=== PATIENT | male | born 1975 | race Hispanic/Latino ===

== ENCOUNTER 2023-08-27 02:56 | Observation (INO) | payer OTHER ==
[2023-08-27] VITALS (7 sets, daily range): BP systolic 101–128; BP diastolic 67–79; PULSE 76–83; RESP 14–22; O2SAT 96–98
[~2023-08-27] VITALS: Ht 182.9 cm; Wt 133.4 kg
[2023-08-27] MEDS ORDERED: ROSU40 PO (04:46)
[2023-08-27] MEDS ORDERED: SITA1TAB6 PO (04:46)
[2023-08-27] MEDS ORDERED: MONT-47 PO (04:46)
[2023-08-27] MEDS ORDERED: EMPA25TA PO (04:46)
[2023-08-27] MEDS ORDERED: SEMA0.258 SQ (04:46)
[2023-08-27] MEDS ORDERED: LISI2.5T13 PO (04:46)
[2023-08-27] MEDS ORDERED: ONDANSETRON 4MG INJ IV PRN (06:00)
[2023-08-27] MEDS ORDERED: GLUCAGON 1MG KIT 1 MG ML IM PRN (06:00)
[2023-08-27] MEDS ORDERED: ACETAMINOPHEN 325 MG TAB PO PRN ×2 (06:00)
[2023-08-27] MEDS ORDERED: POTASSIUM CHLORIDE 10% ELIXIR 20 MEQ/15 ML UDCUP PO PRN (06:00)
[2023-08-27] MEDS ORDERED: KCL 20 MEQ ERTAB PO PRN (06:00)
[2023-08-27] MEDS ORDERED: POTASSIUM CHLORIDE 20MEQ/100ML 100 ML IV PRN (06:00)
[2023-08-27] MEDS ORDERED: DEXTROSE 50%-WATER 50 ML DISP.SYRIN IV PRN (06:00)
[2023-08-27 06:57] LABS: BASOPHILS # (AUTO) 0.01 K/uL (0.00-0.20); BASOPHILS % (AUTO) 0.5 % (0.0-5.0); EOSINOPHILS # (AUTO) 0.08 K/uL (0.00-0.70); EOSINOPHILS % (AUTO) 4.1 % (0.0-8.0); HEMATOCRIT 39.6 % (42-54); IMMATURE GRANULOCYTE ABSOLUTE 0.01 K/uL (0-1); LYMPHOCYTES # (AUTO) 0.7 K/uL (1.0-4.8); LYMPHOCYTES % (AUTO) 36.3 % (21.0-51.0); MEAN CORPUSCULAR HEMOGLOBIN 29.4 pg (27.0-33.0); MEAN CORPUSCULAR HGB CONC 34.1 g/dL (32.0-36.0); MEAN CORPUSCULAR VOLUME 86.3 fL (79-99); MONOCYTES # (AUTO) 0.5 K/uL (0.1-1.0); MONOCYTES % (AUTO) 23.3 % (3.0-13.0); NEUTROPHILS # (AUTO) 0.7 K/uL (1.8-7.7); NEUTROPHILS % (AUTO) 35.3 % (40.0-77.0); PLATELET COUNT (AUTO) 119 K/uL (130-400); RED BLOOD CELL COUNT(AUTO) 4.59 MIL/uL (4.50-6.20); RED CELL DISTRIBUTION WIDTH 12.8 % (11.0-15.5); WHITE BLOOD COUNT (AUTO) 1.9 K/uL (4.8-10.8)
[2023-08-27 07:15] LABS: ALBUMIN 3.5 g/dL (3.5-5.0); BILIRUBIN,DIRECT 0.1 mg/dL (0.0-0.3); BILIRUBIN,TOTAL 0.6 mg/dL (0.2-1.0); CREATININE 0.7 mg/dL (0.5-1.3); MAGNESIUM 1.6 mg/dL (1.80-2.40); POTASSIUM 3.6 mmol/L (3.5-5.1); TOTAL PROTEIN, SERUM 6.7 g/dL (6.0-8.3)
[2023-08-27] MEDS: INSULIN HUMULIN R 100 UNIT/ML 3ML SQ SCH (07:30)
[2023-08-27 08:01] LABS: ERYTHROCYTE SEDIMENTATION RATE 8 MM/HR (0-15)
[2023-08-27] MEDS: 0.9%NACL 1000ML 1,000 ML IV SCH (08:13)
[2023-08-27] MEDS: MAGNESIUM 2GM PREMIX 50ML 50 ML IV PRN (09:13)
[2023-08-27] MEDS: FAMOTIDINE 20MG TAB PO SCH (09:13)
[2023-08-27] MEDS: ASPIRIN 81 MG EC TAB PO SCH (09:13)
[2023-08-27 09:58] LABS: CHOLESTEROL 117 mg/dL (<200); HDL CHOLESTEROL 32 mg/dL (29-71); LDL DIRECT 71 mg/dL (0-99); TRIGLYCERIDES 107 mg/dL (30-200)
[2023-08-27 09:59] LABS: HEMOGLOBIN A1C 7.1 % (4.0-6.0)
[2023-08-27 10:13] LABS: SARS-CoV-2, RNA, NAAT NEGATIVE SARS CoV-2 (NEGATIVE)
[2023-08-27 10:26] LABS: INFLUENZA TYPE A Negative For Type A (NEGATIVE); INFLUENZA TYPE B Negative For Type B (NEGATIVE)
[2023-08-27] MEDS: ATORVASTATIN 20 MG TABLET PO SCH (19:51)
[2023-08-27] MEDS ORDERED: ATORVASTATIN 20 MG TABLET PO SCH (21:00)
[2023-08-28] VITALS (7 sets, daily range): BP systolic 108–120; BP diastolic 58–70; PULSE 71–79; RESP 14–19; O2SAT 96–98
[2023-08-28 05:18] LABS: BASOPHILS # (AUTO) 0.02 K/uL (0.00-0.20); BASOPHILS % (AUTO) 0.7 % (0.0-5.0); EOSINOPHILS # (AUTO) 0.14 K/uL (0.00-0.70); EOSINOPHILS % (AUTO) 5.1 % (0.0-8.0); HEMATOCRIT 40.8 % (42-54); LYMPHOCYTES # (AUTO) 1.3 K/uL (1.0-4.8); LYMPHOCYTES % (AUTO) 45.6 % (21.0-51.0); MEAN CORPUSCULAR HEMOGLOBIN 28.4 pg (27.0-33.0); MEAN CORPUSCULAR HGB CONC 32.8 g/dL (32.0-36.0); MEAN CORPUSCULAR VOLUME 86.4 fL (79-99); MONOCYTES # (AUTO) 0.5 K/uL (0.1-1.0); MONOCYTES % (AUTO) 17.9 % (3.0-13.0); NEUTROPHILS # (AUTO) 0.8 K/uL (1.8-7.7); NEUTROPHILS % (AUTO) 30.7 % (40.0-77.0); PLATELET COUNT (AUTO) 142 K/uL (130-400); RED BLOOD CELL COUNT(AUTO) 4.72 MIL/uL (4.50-6.20); RED CELL DISTRIBUTION WIDTH 12.6 % (11.0-15.5); WHITE BLOOD COUNT (AUTO) 2.7 K/uL (4.8-10.8)
[2023-08-28 05:37] LABS: ALBUMIN 3.2 g/dL (3.5-5.0); BILIRUBIN,TOTAL 0.4 mg/dL (0.2-1.0); CREATININE 0.8 mg/dL (0.5-1.3); TOTAL PROTEIN, SERUM 6.5 g/dL (6.0-8.3)
[2023-08-28 06:00] LABS: BAND NEUTROPHILS % (MANUAL) 7 % (0-2); BASOPHILS % (MANUAL) 2 % (0-2); EOSINOPHILS % (MANUAL) 5 % (1-6); LYMPHOCYTES % (MANUAL) 44 % (22-44); MAN.DIFF COMMENT-IMPRESSION MANUAL DIFFERENTIAL; MONOCYTES % (MANUAL) 17 % (2-9); PLATELET MORPHOLOGY COMMENT ADEQUATE; REACTIVE LYMPHOCYTES 3 % (0-0); SEGMENTED NEUTROPHILS % 22 % (40-70); TOTAL CELLS COUNTED 100
[2023-08-28] MEDS: LISINOPRIL 2.5 MG TABLET PO SCH (10:25)
[2023-08-28] MEDS: LACTATED RINGERS 1000ML 1,000 ML IV SCH (15:10)
[2023-08-29] VITALS: BP 116/65; PULSE 74; RESP 18
[2023-08-29 04:00] VITALS: BP 115/86; PULSE 80; RESP 18
[2023-08-29 05:07] LABS: BASOPHILS # (AUTO) 0.03 K/uL (0.00-0.20); BASOPHILS % (AUTO) 0.9 % (0.0-5.0); EOSINOPHILS # (AUTO) 0.18 K/uL (0.00-0.70); EOSINOPHILS % (AUTO) 5.7 % (0.0-8.0); HEMATOCRIT 41.9 % (42-54); IMMATURE GRANULOCYTE ABSOLUTE 0.01 K/uL (0-1); LYMPHOCYTES # (AUTO) 1.2 K/uL (1.0-4.8); MEAN CORPUSCULAR HEMOGLOBIN 29.2 pg (27.0-33.0); MEAN CORPUSCULAR HGB CONC 33.4 g/dL (32.0-36.0); MEAN CORPUSCULAR VOLUME 87.3 fL (79-99); MONOCYTES # (AUTO) 0.3 K/uL (0.1-1.0); MONOCYTES % (AUTO) 10.4 % (3.0-13.0); NEUTROPHILS # (AUTO) 1.4 K/uL (1.8-7.7); NEUTROPHILS % (AUTO) 44.7 % (40.0-77.0); PLATELET COUNT (AUTO) 146 K/uL (130-400); RED CELL DISTRIBUTION WIDTH 12.5 % (11.0-15.5); WHITE BLOOD COUNT (AUTO) 3.2 K/uL (4.8-10.8)
[2023-08-29 05:27] LABS: ALBUMIN 3.4 g/dL (3.5-5.0); BILIRUBIN,TOTAL 0.5 mg/dL (0.2-1.0); CREATININE 0.7 mg/dL (0.5-1.3); POTASSIUM 3.8 mmol/L (3.5-5.1); TOTAL PROTEIN, SERUM 6.9 g/dL (6.0-8.3)
[2023-08-29 08:00] VITALS: BP 123/70; PULSE 78; RESP 19; O2SAT 98
[2023-08-29] MEDS: REGADENOSON 0.4 MG/5 ML PF SYG IVP SCH (08:13)
[2023-08-29] MEDS: AMOX/CLAV 875/125MG TAB PO SCH (11:32)
[2023-08-29 11:34] VITALS: BP 105/53; PULSE 70; RESP 18
[2023-08-29] MEDS: CETIRIZINE HCL 5 MG TABLET PO SCH (11:37)
[2023-08-29 16:00] VITALS: BP 115/65; PULSE 71; RESP 19
[2023-08-29 20:00] VITALS: BP 137/75; PULSE 79; RESP 18; O2SAT 98
[2023-08-29] MEDS: FLUTICASONE PROPIONATE 50MCG/SPRAY 16 GM BOTTLE EN SCH (22:51)
[2023-08-29] MEDS: MONTELUKAST SODIUM 10 MG TAB PO SCH (22:53)
[2023-08-30] VITALS: BP 118/59; PULSE 85; RESP 18
[2023-08-30 04:00] VITALS: BP 111/66; PULSE 77; RESP 18
[2023-08-30 08:00] VITALS: BP 127/75; PULSE 73; RESP 16; O2SAT 98
[2023-08-30] MEDS ORDERED: AMOX1TAB16 PO (13:25)
[2023-08-30] MEDS ORDERED: CETI10TA57 PO (13:25)
[2023-08-30] MEDS ORDERED: LORA10TA7 PO (13:25)
== END 2023-08-30 12:20 | disposition home or self-care (01) ==
LOC: 3DH 03:57 → INTOOBSV 03:57
PROVIDERS: ADMIT Hospitalist; ATTEND Hospitalist
DX: R55 Syncope and collapse (principal); Z20.822 Contact with and (suspected) exposure to COVID-19; E11.51 Type 2 diabetes mellitus with diabetic peripheral angiopathy without gangrene; I10 Essential (primary) hypertension; E78.5 Hyperlipidemia, unspecified; E66.01 Morbid (severe) obesity due to excess calories; I45.10 Unspecified right bundle-branch block; D69.6 Thrombocytopenia, unspecified; D72.819 Decreased white blood cell count, unspecified; J45.909 Unspecified asthma, uncomplicated; E86.0 Dehydration; M62.82 Rhabdomyolysis; Z79.82 Long term (current) use of aspirin; Z79.899 Other long term (current) drug therapy
CPT/HCPCS: 96374; 96361 ×4; 83036; 82550 ×5; 80076; 83735; 84484 ×3; 80061; 80048; 85025 ×3; 85651; 87804 ×2; 82948 ×12; 86140; 36415 ×3; 87635; 71045; 76705; 93306; 93356; 93880; 76376; 80053 ×2; 93017; 78452; 70551; 96372; G0378 ×77; G0379; J3475; A9500 ×2; J2785; J1815